=== PATIENT | female | born 1930 | race Caucasian/White ===

== ENCOUNTER → 2016-11-08 | Outpatient (CLI) | payer MEDICARE, OTHER | LOC: GMAJ 10:26 | PROVIDERS: ATTEND Family Medicine | DX: R19.7 Diarrhea, unspecified (principal) ==

== ENCOUNTER → 2016-11-22 | Outpatient (CLI) | payer MEDICARE, OTHER | END | disposition home or self-care (01) | LOC: NC 09:19 | PROVIDERS: ATTEND Family Medicine | DX: R30.0 Dysuria (principal); R30.9 Painful micturition, unspecified ==

== ENCOUNTER → 2016-12-20 | Outpatient (CLI) | payer MEDICARE, OTHER | END | disposition home or self-care (01) | LOC: NC 09:45 | PROVIDERS: ATTEND Family Medicine | DX: I11.9 Hypertensive heart disease without heart failure (principal); R30.0 Dysuria; I47.1 Supraventricular tachycardia; M48.06 Spinal stenosis, lumbar region ==

== ENCOUNTER → 2017-02-26 | Outpatient (CLI) | payer MEDICARE, OTHER | END | disposition home or self-care (01) | LOC: NC 09:33 | PROVIDERS: ATTEND Family Medicine | DX: R30.0 Dysuria (principal) ==

== ENCOUNTER → 2017-05-01 | Outpatient (CLI) | payer MEDICARE, OTHER | END | disposition home or self-care (01) | LOC: NC 12:00 | PROVIDERS: ATTEND Family Medicine | DX: R30.0 Dysuria (principal) ==

== ENCOUNTER → 2017-05-09 | Outpatient (CLI) | payer MEDICARE | LOC: NC 10:20 | PROVIDERS: ATTEND Family Medicine | DX: R30.0 Dysuria (principal) ==

== ENCOUNTER → 2017-08-21 | Outpatient (CLI) | payer MEDICARE | LOC: GMAJ 11:31 | PROVIDERS: ATTEND Family Medicine | DX: R30.0 Dysuria (principal) ==

== ENCOUNTER → 2018-04-03 | Outpatient (CLI) | payer MEDICARE | LOC: NC 09:44 | PROVIDERS: ATTEND Family Medicine | DX: R30.0 Dysuria (principal) ==

== ENCOUNTER → 2018-04-30 | Outpatient (CLI) | payer MEDICARE | LOC: GMAJ 09:02 | PROVIDERS: ATTEND Family Medicine | DX: R30.0 Dysuria (principal) ==

== ENCOUNTER → 2018-11-25 | Outpatient (CLI) | payer MEDICARE | LOC: NC 10:21 | PROVIDERS: ATTEND Family Medicine | DX: I10 Essential (primary) hypertension (principal); I47.1 Supraventricular tachycardia; I11.9 Hypertensive heart disease without heart failure ==

== ENCOUNTER → 2018-12-10 | Outpatient (CLI) | payer MEDICARE, OTHER ==
--- NOTE | 2018-12-10 14:20 | RAD ---
EXAM DESCRIPTION: UGI: Rad-Fluoroscopy. CLINICAL HISTORY: GASTRO-ESOPHAGEAL REFLUX DISEASE WITHOUT ESOPHAGITIS COMPARISON: None TECHNIQUE: The patient swallowed gas-producing granules, water, and heavy density barium under fluoroscopic visualization. The images were obtained with the patient standing and decubitus. Study was limited due to patient weakness and inability to the supine. Patient drank medium density barium through a straw in the right decubitus position. 35 fluoroscopic cine loop images. 9 static fluoroscopic images. Total fluoroscopy time was 2.1 minutes. DAP: 26.4 Gy-cm2.. Dose 142.55 mGy. FINDINGS: The midesophagus is minimally displaced by the atherosclerotic aortic arch. Primary peristaltic wave proximal two thirds of the esophagus with tertiary and secondary contractions distally. Small sliding hiatal hernia is noted with Schatzki's ring. Hiatal hernia is relatively fixed. No gross mucosal lesions in the mid or distal esophagus. Mild gastroesophageal reflux. Moderate distention of the stomach with gas and contrast material. No mass effect or mucosal lesions. No gastroduodenal obstruction. Duodenal bulb and most of the duodenum well visualized with no intrinsic lesions or mass effect. IMPRESSION: 1. Limited study due to patient physical condition. Not able to maintain optimal positions for some images. 2. Secondary and tertiary contractions distal esophagus. Fixed hiatal hernia with Schatzki's ring. Mild gastroesophageal reflux 3. No large mucosal lesions or obvious mass effect on the stomach or duodenum. Electronically signed by: Joni Mejia MD 12/10/2018 2:16 PM [employer]
== END ==
LOC: RAD 09:00
PROVIDERS: ATTEND Family Medicine
DX: K21.9 Gastro-esophageal reflux disease without esophagitis (principal); K44.0 Diaphragmatic hernia with obstruction, without gangrene

== ENCOUNTER → 2018-12-12 | Outpatient (CLI) | payer MEDICARE, OTHER | LOC: NC 08:55 | PROVIDERS: ATTEND Family Medicine | DX: R30.0 Dysuria (principal) ==

== ENCOUNTER → 2019-04-03 | Outpatient (CLI) | payer MEDICARE, OTHER | LOC: NC 09:02 | PROVIDERS: ATTEND Family Medicine | DX: I10 Essential (primary) hypertension (principal); E78.5 Hyperlipidemia, unspecified; M48.061 Spinal stenosis, lumbar region without neurogenic claudication; R30.0 Dysuria ==

== ENCOUNTER → 2019-04-15 | Outpatient (CLI) | payer MEDICARE, OTHER | LOC: RESP 15:12 | PROVIDERS: ATTEND Family Medicine | DX: R00.0 Tachycardia, unspecified (principal) ==

== ENCOUNTER 2019-07-20 13:29 | Emergency (ER) | payer MEDICARE, OTHER ==
--- NOTE | 2019-07-20 13:42 | ED.PDOC ---
History of Present Illness - General Time Seen by Provider: 07/20/19 13:39 - History of Present Illness Initial Comments: chief complaint altered mentation 88-year-old female positive past medical history presents with family member via EMS to ED complaining of slow thinking and confusion. Patient was found by EMS temperature 40s and given D50. patient had mild improvement with D50 per EMS the patient endorses known. Patient just recently and in the family which has decreased her motivation in appetite and she has not been eating as much as wall. She reports she just has difficulty thinking of things she normally would remember. Patient endorses history of [employer] shunt that has been working without complication for prolonged period of time.she denies history of similar symptoms. She denies any current associated chest pain, shortness of breath, palpitations, dizziness, headache, fever or chills, nausea vomiting diarrhea,and/or dysuria hematuria. Allergies/Adverse Reactions: Allergies Codeine Allergy (Verified 07/20/19 17:05) Home Medications: Ambulatory Orders Alprazolam 0.25 mg PO BID 07/20/19 Losartan Potassium & Hydrochlo [Losartan Potassium/Hydroc 100-25 mg] 1 tab PO DAILY 07/20/19 Review of Systems - Review of Systems Constitutional: States: other. Denies: chills, diaphoresis, fever EENTM: Denies: blurred vision - fatigue and decreased motivation and appetite, double vision Respiratory: Denies: cough, short of breath Cardiology: Denies: chest pain, palpitations, syncope Gastrointestinal/Abdominal: Denies: abdominal pain, constipation, diarrhea, nausea, vomiting Genitourinary: Denies: dysuria, hematuria Musculoskeletal: Denies: back pain, muscle pain Skin: Denies: change in color, rash Neurological: States: emotional problems, other - confusion and diffiiculty thinking. Denies: anxiety, headache, numbness Family Medical History - Family History Mother Family History: Unknown Living Status: Physical Exam - Physical Exam General Appearance: Alert, Comfortable Eye Exam: bilateral normal Ears, Nose, Throat: normal ENT inspection Neck: full range of motion, supple, normal inspection Respiratory: lungs clear, normal breath sounds, no respiratory distress, no accessory muscle use Cardiovascular/Chest: normal peripheral pulses, regular rate, rhythm, no JVD, no murmur Gastrointestinal/Abdominal: normal bowel sounds, non tender, soft Back Exam: no CVA tenderness, no vertebral tenderness Extremity: no pedal edema Neurologic: rejogger II-XII nml as tested, no motor/sensory deficits, alert, normal mood/affect, oriented x 3 Skin Exam: normal color, warm/dry Progress - Progress Progress: Rahul Rico #[id number] patient presents to ED with altered mental status concerning for UTI versus ventricular shunt disruption versus intracerebral pathology. I will obtain labs, imaging, provide appropriate pharmacotherapy as indicated, continue monitor/reassess. Disposition will depend on labs and imaging as well as patient's clinical course in ED; however, discharge home as expected is no intracranial pathology is found patient with education, follow-up instructions, and possible prescription versus and documented time of discharge and recheck patient is resting comfortably in bed with family member at bedside. Patient's no acute distress with stable vital signs. Patient remains neurologically intact with no deficits and she has to her entire ED course. with both patient and family member and discuss findings of UTI as well as all normal with results showing no acute pathology on imaging for many months. I informed them on discharge home education, instructions, follow-up, prescription. Patient and family member both voice understanding, agreed with plan, all questions answered. - Results/Orders Results/Orders: 07/20/19 13:45 EKG STAT 07/20/19 16:20 Urine Culture Stat Laboratory Results - last 24 hr 07/20/19 07/20/19 07/20/19 13:20 13:20 16:00 WBC 9.4 RBC 4.06 L Hgb 12.5 Hct 38.4 MCV 94.6 MCH 30.8 MCHC 32.5 L RDW 13.3 Plt Count 285 MPV 9.3 Absolute Neuts (auto) 4.10 Absolute Lymphs (auto) 4.20 H Absolute Monos (auto) 0.80 Absolute Eos (auto) 0.30 Absolute Basos (auto) 0.00 Neutrophils % 43.4 Lymphocytes % 44.5 Monocytes % 8.4 Eosinophils % 3.2 Basophils % 0.5 Sodium 136 Potassium 4.0 Chloride 99 L Carbon Dioxide 24 Anion Gap 17.0 BUN 24 H Creatinine 0.97 BUN/Creatinine Ratio 24.7 H POC Glucose 110 H Random Glucose 93 Serum Osmolality 275.7 Calcium 9.3 Total Bilirubin 0.7 AST 14 ALT 10 Alkaline Phosphatase 65 Serum Total Protein 7.4 Albumin 3.9 Globulin 3.5 Albumin/Globulin Ratio 1.1 TSH 3.82 Urine Color Urine Appearance Urine pH Ur Specific [place] Urine Protein Urine Glucose (UA) Urine Ketones Urine Blood Urine Nitrite Urine Bilirubin Urine Urobilinogen Ur Leukocyte Esterase Urine RBC Urine WBC Ur Epithelial Cells Amorphous Sediment Urine Bacteria 07/20/19 16:20 WBC RBC Hgb Hct MCV MCH MCHC RDW Plt Count MPV Absolute Neuts (auto) Absolute Lymphs (auto) Absolute Monos (auto) Absolute Eos (auto) Absolute Basos (auto) Neutrophils % Lymphocytes % Monocytes % Eosinophils % Basophils % Sodium Potassium Chloride Carbon Dioxide Anion Gap BUN Creatinine BUN/Creatinine Ratio POC Glucose Random Glucose Serum Osmolality Calcium Total Bilirubin AST ALT Alkaline Phosphatase Serum Total Protein Albumin Globulin Albumin/Globulin Ratio TSH Urine Color Yellow Urine Appearance Clear Urine pH 6.5 Ur Specific [place] 1.010 Urine Protein Negative Urine Glucose (UA) Negative Urine Ketones Negative Urine Blood Negative Urine Nitrite Positive H Urine Bilirubin Negative Urine Urobilinogen 0.2 Ur Leukocyte Esterase Trace H Urine RBC 0 Urine WBC 3-5 H Ur Epithelial Cells 5-10 Amorphous Sediment Trace Urine Bacteria 1+ EXAM DESCRIPTION: Chest,2 Views CLINICAL HISTORY: [employer] shunt evaluation COMPARISON: None TECHNIQUE: PA/lateral FINDINGS: Two views of the chest demonstrate a calcified tortuous aorta and upper normal heart. The [employer] shunt catheter overlies the anterior right chest, not the left chest. This can be seen descending into the abdomen. No acute infiltrates or other abnormalities noted. IMPRESSION: [employer] shunt catheter overlying the right anterior chest. Electronically signed by: Kenneth Milner MD 07/20/2019 2:58 PM CDT EXAM DESCRIPTION: Skull,2 Views CLINICAL HISTORY: 88 years Female, [employer] shunt evaluation COMPARISON: None. FINDINGS: Two views of the calvarium demonstrate a ventriculoperitoneal shunt catheter in place from the right frontal region with the catheter tip lying just to the left of midline likely in the region of the third ventricle. Catheter descends in the right side of the neck posteriorly and its superior course and courses over the clavicle and to the anterior aspect of the right chest. IMPRESSION: [employer] shunt catheter in place from the right frontal region into the region of the third ventricle. Electronically signed by: Kenneth Milner MD 07/20/2019 3:00 PM CDT EXAM DESCRIPTION: XR ABDOMEN 1 VIEW (KUB) CLINICAL HISTORY: [employer] shunt evaluation COMPARISON: None Available. TECHNIQUE: KUB FINDINGS: Two views of the abdomen demonstrate the [employer] shunt catheter extending into the right flank region and then extending into the central lower pelvis with the tip lying in the immediate suprapubic region. Advanced scoliosis and degenerative changes of the lumbar spine noted with normal bowel gas pattern. Advanced right hip degenerative arthropathy noted. IMPRESSION: [employer] shunt catheter lying in the central lower pelvis. Electronically signed by: Kenneth Milner MD 07/20/2019 2:59 PM CDT Dictation date: ADDENDUM #1 Addendum: Based on the additi onal imaging of the [employer] shunt catheter in the head chest and abdomen the neck examination is mislabeled and the catheter actually descends in the right side of the neck and overlies the right chest. Electronically signed by: Kenneth Milner MD 07/20/2019 3:02 PM CDT ORIGINAL REPORT EXAM DESCRIPTION: Neck,Soft Tissue CLINICAL HISTORY: 88 years Female, [employer] shunt evaluation COMPARISON: None. FINDINGS: Two soft tissue views of the neck show a [employer] shunt in place overlying the left side of the parieto- occipital skull and extending through the neck on the left anteriorly to overlie the medial left chest. Advanced degenerative changes in the cervical spine are noted. The airway appears adequate with no evidence of foreign body or epiglottic enlargement. IMPRESSION: Catheter for left-sided [employer] shunt in place from the left parieto-occipital region to the anterior surface of the medial left chest. No disruption of the visualized portion of the shunt noted. Electronically signed by: Kenneth Milner MD 07/20/2019 2:55 PM CDT END ADDENDUM EXAM DESCRIPTION: Neck,Soft Tissue CLINICAL HISTORY: 88 years Female, [employer] shunt evaluation COMPARISON: None. FINDINGS: Two soft tissue views of the neck show a [employer] shunt in place overlying the left side of the parieto-occipital skull and extending through the neck on the left anteriorly to overlie the medial left chest. Advanced degenerative changes in the cervical spine are noted. The airway appears adequate with no evidence of foreign body or epiglottic enlargement. IMPRESSION: Catheter for left-sided [employer] shunt in place from the left parieto-occipital region to the anterior surface of the medial left chest. No disruption of the visualized portion of the shunt noted. Electronically signed by: Kenneth Milner MD 07/20/2019 2:55 PM CDT EXAM DESCRIPTION: Head CLINICAL HISTORY: AMS COMPARISON: Previous CT of the brain December 19, 2007 TECHNIQUE: Noncontrast head CT was performed with routine protocol. FINDINGS: Normal corado-white matter differentiation. Ventricles and sulci are normal for age. Ventriculostomy catheter is present in the frontal region. This was present at the time the previous study. Old right parietal yamile hole. Low density white matter consistent with chronic microvascular ischemic changes. 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 Similar appearance of prominent extra-axial fluid collections seen on previous study. MRI may be helpful for further evaluation. No ventricular dilatation compared to the previous study to suggest shunt malfunction. No acute-appearing high density hemorrhage, focal edema or shift of the midline. No sulcal effacement. Normal orbital contents. Basilar cisterns appear clear. Intact calvarium with no fracture or lytic lesion. Normal aeration of tympanic cavities and mastoid air cells. No fluid levels in the paranasal sinuses. Skull base appears intact. Symmetrical internal auditory canals. IMPRESSION: Multiple abnormalities appear stable compared to the previous study. No acute intracranial pathologic process. This exam was performed according to our departmental dose-optimization program, which includes automated exposure control, adjustment of the mA and/or kV according to patient size and/or use of iterative reconstruction technique. Total DLP equals 967.47 mGycm. Electronically signed by: Anthony Giang MD 07/20/2019 3:48 PM CDT Departure - Departure Clinical Impression: Altered behavior UTI (urinary tract infection) Qualifiers: Urinary tract infection type: acute cystitis Hematuria presence: without hematuria Qualified Code(s): N30.00 - Acute cystitis without hematuria Time of Disposition: 16:59 Disposition: Discharge to Home or Self Care Condition: Excellent Departure Forms: ED Discharge - Pt. Copy, Patient Portal Self Enrollment Instructions: Urinary Tract Infection, Adult (DC), Acute Cystitis (DC) Referrals: Arnie Montague MD [Primary Care Provider] - 1-2 Weeks Home Medications: Ambulatory Orders Alprazolam 0.25 mg PO BID 07/20/19 Losartan Potassium & Hydrochlo [Losartan Potassium/Hydroc 100-25 mg] 1 tab PO DAILY 07/20/19
--- NOTE | 2019-07-20 14:56 | RAD ---
EXAM DESCRIPTION: Neck,Soft Tissue CLINICAL HISTORY: 88 years Female, [employer] shunt evaluation COMPARISON: None. FINDINGS: Two soft tissue views of the neck show a [employer] shunt in place overlying the left side of the parieto-occipital skull and extending through the neck on the left anteriorly to overlie the medial left chest. Advanced degenerative changes in the cervical spine are noted. The airway appears adequate with no evidence of foreign body or epiglottic enlargement. IMPRESSION: Catheter for left-sided [employer] shunt in place from the left parieto-occipital region to the anterior surface of the medial left chest. No disruption of the visualized portion of the shunt noted. Electronically signed by: Kenneth Milner MD 07/20/2019 2:55 PM CDT
--- NOTE | 2019-07-20 15:00 | RAD ---
EXAM DESCRIPTION: Chest,2 Views CLINICAL HISTORY: [employer] shunt evaluation COMPARISON: None TECHNIQUE: PA/lateral FINDINGS: Two views of the chest demonstrate a calcified tortuous aorta and upper normal heart. The [employer] shunt catheter overlies the anterior right chest, not the left chest. This can be seen descending into the abdomen. No acute infiltrates or other abnormalities noted. IMPRESSION: [employer] shunt catheter overlying the right anterior chest. Electronically signed by: Kenneth Milner MD 07/20/2019 2:58 PM CDT
--- NOTE | 2019-07-20 15:01 | RAD ---
EXAM DESCRIPTION: XR ABDOMEN 1 VIEW (KUB) CLINICAL HISTORY: [employer] shunt evaluation COMPARISON: None Available. TECHNIQUE: KUB FINDINGS: Two views of the abdomen demonstrate the [employer] shunt catheter extending into the right flank region and then extending into the central lower pelvis with the tip lying in the immediate suprapubic region. Advanced scoliosis and degenerative changes of the lumbar spine noted with normal bowel gas pattern. Advanced right hip degenerative arthropathy noted. IMPRESSION: [employer] shunt catheter lying in the central lower pelvis. Electronically signed by: Kenneth Milner MD 07/20/2019 2:59 PM CDT
--- NOTE | 2019-07-20 15:02 | RAD ---
EXAM DESCRIPTION: Skull,2 Views CLINICAL HISTORY: 88 years Female, [employer] SUPER[employer] shunt evaluation COMPARISON: None. FINDINGS: Two views of the calvarium demonstrate a ventriculoperitoneal shunt catheter in place from the right frontal region with the catheter tip lying just to the left of midline likely in the region of the third ventricle. Catheter descends in the right side of the neck posteriorly and its superior course and courses over the clavicle and to the anterior aspect of the right chest. IMPRESSION: [employer] shunt catheter in place from the right frontal region into the region of the third ventricle. Electronically signed by: Kenneth Milner MD 07/20/2019 3:00 PM CDT
--- NOTE | 2019-07-20 15:49 | CT ---
EXAM DESCRIPTION: Head CLINICAL HISTORY: AMS COMPARISON: Previous CT of the brain December 19, 2007 TECHNIQUE: Noncontrast head CT was performed with routine protocol. FINDINGS: Normal corado-white matter differentiation. Ventricles and sulci are normal for age. Ventriculostomy catheter is present in the frontal region. This was present at the time the previous study. Old right parietal yamile hole. Low density white matter consistent with chronic microvascular ischemic changes. 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 Similar appearance of prominent extra-axial fluid collections seen on previous study. MRI may be helpful for further evaluation. No ventricular dilatation compared to the previous study to suggest shunt malfunction. No acute-appearing high density hemorrhage, focal edema or shift of the midline. No sulcal effacement. Normal orbital contents. Basilar cisterns appear clear. Intact calvarium with no fracture or lytic lesion. Normal aeration of tympanic cavities and mastoid air cells. No fluid levels in the paranasal sinuses. Skull base appears intact. Symmetrical internal auditory canals. IMPRESSION: Multiple abnormalities appear stable compared to the previous study. No acute intracranial pathologic process. This exam was performed according to our departmental dose-optimization program, which includes automated exposure control, adjustment of the mA and/or kV according to patient size and/or use of iterative reconstruction technique. Total DLP equals 967.47 mGycm. Electronically signed by: Anthony Giang MD 07/20/2019 3:48 PM CDT
[2019-07-20 17:37] VITALS: BP 146/63; TEMP 97.8; O2SAT 96
[2019-07-20] MEDS ORDERED: CEPHALEXIN MONOHYDRATE 500 MG CAP PO ONE (17:38)
== END 2019-07-20 17:35 | disposition home or self-care (01) ==
LOC: ER 13:29
DX: N30.00 Acute cystitis without hematuria (principal); R46.89 Other symptoms and signs involving appearance and behavior; R41.82 Altered mental status, unspecified; Z98.2 Presence of cerebrospinal fluid drainage device; Z88.5 Allergy status to narcotic agent; Z79.899 Other long term (current) drug therapy